=== PATIENT | female | born 1975 | race Two or more races ===

== ENCOUNTER 2016-12-16 00:12 | Emergency (ER) | payer OTHER ==
[~2016-12-16] VITALS: Ht 165.1 cm; Wt 106.6 kg
--- NOTE | ~2016-12-16 | CR72 ---
[facility] A Service of [facility] & [facility] RADIOLOGY TEXT RESULTS PATIENT: RIKKI CHAUDHARY LOCATION: [facility] : 75 UNIT #: [id number] AGE: [address]: Carlos Manuel Pittman MD SEX: F ORDER DR: [id number] [facility] [address] [place], [place] [address] [id number] MR#: [id number] Acc #: [id number] NAME: RIKKI CHAUDHARY : 1975 SEX: F STUDY DATE/TIME: 12/16/2016 0:57 UNIT: [facility] ROOM: STUDY DESCRIPTION: CR Chest Single View Portable Attending Physician: Carlos Manuel Pittman M.D. Ordering Physician: Carlos Manuel Pittman M.D. Primary Care Physician: Primary Care Physician No MEDICAL IMAGING REPORT This report is preliminary unless electronic signature is present EXAM Chest x-ray: 12/16/2016 HISTORY 41-year-old female in the ED complaining of new onset shortness of air today. TECHNIQUE AP portable chest x-ray. FINDINGS The exam shows possible subtle infiltrate in the right medial lung base. Lungs are otherwise clear. No dense airspace consolidation or pleural effusion. Heart size and pulmonary vascularity are normal. IMPRESSION Possible mild infiltrate right medial lung base. Dictated by... Hussein Bacon M.D. THIS IS AN ELECTRONICALLY VERIFIED REPORT Hussein Bacon M.D. at 12/16/2016 9:58 PM EDSONW/cem TD: 12/16/2016 09:38 JOB #: [id number] MEDICAL IMAGING REPORT Page 1 of 1 COPY
== END 2016-12-16 01:56 | disposition home or self-care (01) ==
LOC: CED 00:12
DX: J18.1 Lobar pneumonia, unspecified organism (principal); J98.01 Acute bronchospasm; F17.210 Nicotine dependence, cigarettes, uncomplicated
CPT/HCPCS: 71010; 94640; 99284